=== PATIENT | female | born 1965 | race African-American/Black ===

== ENCOUNTER 2019-01-02 11:15 | Emergency (ER) | payer MEDICAID ==
[~2019-01-02] VITALS: Ht 157.5 cm; Wt 82.0 kg
[2019-01-02] MEDS ORDERED: SODIUM CHLORIDE 0.9% 1,000 ML IV ONE (12:58)
[2019-01-02 13:31] LABS: BASOPHILS % 0.6 % (0.0-2.0); HEMATOCRIT. 39.7 % (36.0-48.0); HEMOGLOBIN. 13.1 g/dL (12.0-16.0); MEAN CORPUSCULAR HEMOGLOBIN 24.9 pg (28.0-32.0); MEAN CORPUSCULAR VOLUME 75.5 fL (81.0-99.0); MEAN PLATELET VOLUME 7.7 fl (7.4-10.4); NEUTROPHILS % 55.4 % (40.0-76.0); PLATELET 267 x1000/uL (130-400); RED BLOOD CELL COUNT 5.26 mill/uL (4.2-5.4); RED CELL DISTRIBUTION WIDTH 15.6 % (11.6-14.6)
[2019-01-02 13:33] LABS: CHLORIDE 107 mEq/L (98-107)
[2019-01-02 14:27] LABS: CLARITY URINE CLEAR (CLEAR); COLOR URINE YELLOW (YELLOW); KETONES URINE NEGATIVE (NEGATIVE); LEUKOCYTE ESTERASE URINE NEGATIVE (NEGATIVE); NITRITE URINE NEGATIVE (NEGATIVE); OCCULT BLOOD URINE TRACE (NEGATIVE); PH URINE 7.5 (4.5-8.0); PROTEIN URINE NEGATIVE (NEGATIVE); SPECIFIC GRAVITY URINE 1.004 (1.005-1.030); UROBILINOGEN URINE 0.2 E.U./dL (0.2-1.0)
[2019-01-02 15:52] VITALS: BP 159/82
== END 2019-01-02 15:54 | disposition home or self-care (01) ==
LOC: ER 11:23
DX: R19.7 Diarrhea, unspecified (principal); R53.1 Weakness; R42 Dizziness and giddiness; I10 Essential (primary) hypertension; Z88.6 Allergy status to analgesic agent; Z98.890 Other specified postprocedural states
CPT/HCPCS: 36415; 80053; 81003; 85025; 93005; 96360; 96361; 99284; J7030; Z7610

== ENCOUNTER 2021-09-15 17:57 | Emergency (ER) | payer MEDICAID ==
[~2021-09-15] VITALS: Ht 154.9 cm; Wt 77.0 kg
[~2021-09-15 17:57] MED LIST: ALBU18HF2 IH; AZIT250T12 MT; HYDR25TA PO; LOSA100T32 PO; METO-539 PO
[2021-09-15] MEDS ORDERED: SODIUM CHLORIDE 0.9% 1,000 ML IV ONE (18:30)
[2021-09-15 18:51] LABS: BASOPHILS % 0.5 % (0.0-2.0); EOSINOPHILS % 1.4 % (0.0-5.0); HEMATOCRIT. 41.6 % (36.0-48.0); HEMOGLOBIN. 13.5 g/dL (12.0-16.0); LYMPHOCYTES % 23.5 % (20.0-50.0); MEAN CORPUSCULAR HEMOGLOBIN 25.4 pg (28.0-32.0); MEAN CORPUSCULAR VOLUME 78.1 fL (81.0-99.0); MEAN PLATELET VOLUME 7.4 fl (7.4-10.4); MONOCYTES % 9.1 % (2.0-8.0); NEUTROPHILS % 65.5 % (40.0-76.0); PLATELET 256 x1000/uL (130-400); RED BLOOD CELL COUNT 5.32 mill/uL (4.2-5.4); RED CELL DISTRIBUTION WIDTH 15.2 % (11.6-14.6)
[2021-09-15 19:00] LABS: CHLORIDE 104 mEq/L (98-107)
[2021-09-15 19:26] LABS: CLARITY URINE CLEAR (CLEAR); COLOR URINE YELLOW (YELLOW); KETONES URINE NEGATIVE (NEGATIVE); LEUKOCYTE ESTERASE URINE TRACE (NEGATIVE); NITRITE URINE NEGATIVE (NEGATIVE); OCCULT BLOOD URINE NEGATIVE (NEGATIVE); PH URINE 7.5 (4.5-8.0); PROTEIN URINE NEGATIVE (NEGATIVE); SPECIFIC GRAVITY URINE 1.008 (1.005-1.030); UROBILINOGEN URINE 0.2 E.U./dL (0.2-1.0)
[2021-09-15] MEDS ORDERED: CLONIDINE 0.1MG TABLET PO ONE (19:45)
[2021-09-15] MEDS ORDERED: LORAZEPAM 1MG TABLET PO ONE (20:00)
[2021-09-15] MEDS ORDERED: METOPROLOL TARTRATE 50MG TABLET PO ONE (20:00)
[2021-09-15 21:00] VITALS: BP 169/89
== END 2021-09-15 21:22 | disposition home or self-care (01) ==
LOC: ER 17:57
DX: F41.9 Anxiety disorder, unspecified (principal); R00.2 Palpitations; I10 Essential (primary) hypertension; E78.00 Pure hypercholesterolemia, unspecified; Z88.1 Allergy status to other antibiotic agents; Z88.6 Allergy status to analgesic agent; Z88.0 Allergy status to penicillin; Z88.8 Allergy status to other drugs, medicaments and biological substances; Z88.5 Allergy status to narcotic agent; Z79.899 Other long term (current) drug therapy; Z98.890 Other specified postprocedural states
CPT/HCPCS: 36415; 71045; 80053; 81003; 83605; 83690; 84484; 85025; 93005; 96360; 99285; J7030; Z7610

== ENCOUNTER 2022-09-09 21:10 | Emergency (ER) | payer MEDICAID ==
[~2022-09-09] VITALS: Ht 167.6 cm; Wt 82.0 kg
[~2022-09-09 21:10] MED LIST changes: +SUMA25TA9 PO
[2022-09-09] MEDS ORDERED: METOCLOPRAMIDE HCL 10MG/2ML VIAL IV ONE (23:15)
[2022-09-09] MEDS ORDERED: DEXAMETHASONE 10 MG/ML VIAL IV ONE (23:15)
[2022-09-09] MEDS ORDERED: SODIUM CHLORIDE 0.9% 1,000 ML IV ONE (23:15)
[2022-09-10 01:00] VITALS: BP 139/85
== END 2022-09-10 02:42 | disposition home or self-care (01) ==
LOC: ER 21:10
DX: G43.909 Migraine, unspecified, not intractable, without status migrainosus (principal); R11.2 Nausea with vomiting, unspecified; I10 Essential (primary) hypertension; F41.9 Anxiety disorder, unspecified; E78.00 Pure hypercholesterolemia, unspecified; Z88.6 Allergy status to analgesic agent; Z88.1 Allergy status to other antibiotic agents; Z88.0 Allergy status to penicillin; Z88.8 Allergy status to other drugs, medicaments and biological substances
CPT/HCPCS: 96361; 96374; 96375; 99284; J1100; J2765; J7030; Z7610

== ENCOUNTER 2025-05-01 03:38 | Emergency (ER) | payer MEDICAID ==
[~2025-05-01] VITALS: Ht 157.5 cm; Wt 82.0 kg
[~2025-05-01 03:38] MED LIST changes: -LOSA100T32 PO; +LOSA100T33 PO
[2025-05-01 03:39] VITALS: O2SAT 98
[2025-05-01 11:18] VITALS: BP 145/73; PULSE 70; RESP 18; TEMP 36.9; O2SAT 99
== END 2025-05-01 11:21 | disposition home or self-care (01) ==
LOC: ER 03:41
DX: U07.1 COVID-19 (principal); F41.9 Anxiety disorder, unspecified; E78.00 Pure hypercholesterolemia, unspecified; F17.200 Nicotine dependence, unspecified, uncomplicated; I10 Essential (primary) hypertension; J44.9 Chronic obstructive pulmonary disease, unspecified; Z79.899 Other long term (current) drug therapy; Z88.0 Allergy status to penicillin; Z88.1 Allergy status to other antibiotic agents
CPT/HCPCS: 99285; A4615